=== PATIENT | male | born 1960 | race Caucasian/White ===

== ENCOUNTER 2019-05-12 11:49 | Outpatient (CLI) | payer OTHER, SELFPAY ==
--- NOTE | ~2019-05-12 | CT_ITS ---
EXAMINATION: CT abdomen pelvis wo con DATE: 05/12/2019 12:26 INDICATION: Localized abdominal pain for weeks. Evaluate for constipation or diverticulitis. TECHNIQUE: Computed tomography (CT) of the abdomen and pelvis was performed without intravenous contr ast. The dose-length product was 362.08 mGy-cm. Automated exposure control and iterative reconstructi on technique were employed. COMPARISON: None. FINDINGS: Lung bases are unremarkable. Heart size normal. No significant pleural or pericardial effus ion. There are calcified granulomas of the liver and spleen. Heart size is normal. Gallbladder is pre sent. There are fluid-filled distended small bowel loops throughout the abdomen to the terminal ileum . No transition point. Considerations include enteritis and ileus. Colonic diverticulosis without leona dence for diverticulitis. Appendix is mildly thickened measuring 7 mm, although there is no significa nt surrounding periappendiceal inflammation. No free air or free fluid. No abnormal pelvic masses or fluid collections. There is moderate lumbar spondylosis at L5-S1. No acute osseous abnormality. Mildl y enlarged mesenteric lymph nodes, likely reactive. IMPRESSION: 1. Fluid-filled distended small bowel loops, most likely ileus versus enteritis. No definite obstruct ion. 2: Mildly thickened appendix measuring 7 mm, although there are no secondary findings to support acut e appendicitis. Correlate clinically. 3: Mildly enlarged mesenteric lymph nodes, likely reactive. Reviewed, dictated and finalized at location A. IMPRESSION: 1. Fluid-filled distended small bowel loops, most likely ileus versus enteritis . No definite obstruction. 2: Mildly thickened appendix measuring 7 mm, although there are no secondary fi ndings to support acute appendicitis. Correlate clinically. 3: Mildly enlarged mesenteric lymph nodes, likely reactive.
[2019-05-12 12:47] LABS: Basophils Percent Auto 0.3 % (0.2-1.2); Eosinophils Absolute Auto 0.1 K/mm3 (0-0.3); Hematocrit 45.2 % (42.0-52.0); Hemoglobin 15.1 g/dL (14.0-18.0); Immature Granulocyte Absolute 0.02 K/mm3 (0.00-0.031); Immature Granulocyte Percent A 0.3 % (0-0.5); Lymphocytes Absolute Auto 1.19 K/mm3 (0.9-3.2); Mean Corpuscular HGB Conc 33.4 g/dl (32-36); Mean Corpuscular Hemoglobin 31.4 pg (26-34); Mean Platelet Volume 9.2 fl (7.4-10.4); Monocytes Absolute Auto 0.5 K/mm3 (0.1-0.6); Neutrophils Absolute Auto 5.2 K/mm3 (1.3-6.7); Neutrophils Percent Auto 73.4 % (45.5-73.1); Platelet Count Result 258 k/mm3 (150-375); Red Blood Count 4.81 M/mm3 (4.6-6.20); Red Cell Distribution Width 12.2 % (11.5-14.5)
[2019-05-12 12:48] LABS: Add Urine Microscopic? NO; Appearance Urine Clear (Clear); Bilirubin Urine Negative (Negative); Blood Urine Negative (Negative); Color Urine Yellow (Yellow); Glucose Urine UA Negative (Negative); Ketones Urine Negative (Negative); Leukocyte Esterase Ur Negative LEU/UL (NEGATIVE); Nitrate Urine Negative (Negative); Protein Urine Negative (Negative); Specific Grav Ur 1.016 (1.001-1.035); Urobilinogen Urine Negative mg/dL (<2.0)
[2019-05-12 12:56] LABS: Alanine Aminotransferase 22 U/L (4-50); Albumin Level 4.6 g/dL (3.5-5.1); Alkaline Phosphatase 74 U/L (38-126); Amylase 123 U/L (30-110); Aspartate Amino Transferase 31 U/L (17-59); Bilirubin,Total 0.6 mg/dL (0.2-1.3); Blood Urea Nitrogen 17 mg/dL (9-20); Carbon Dioxide 27 mmol/L (22-30); Chloride 100 mmol/L (98-107); Estimated Glomerular Filt Rate > 60; Glucose 99 mg/dL (75-110); Lipase 150 U/L (23-300); Potassium 4.5 mmol/L (3.4-5.0); Sodium 135 mmol/L (137-145)
== END 2019-05-12 11:50 | disposition home or self-care (01) ==
LOC: ANHIMG 11:59
PROVIDERS: PCP Family Medicine; Visit Provider Family Medicine
DX: R10.9 Unspecified abdominal pain (principal)
CPT/HCPCS: 36415; 74176; 80053; 81003; 82150; 83690; 85025

== ENCOUNTER 2025-01-19 06:58 | Day surgery (SDC) | payer OTHER, SELFPAY ==
[2025-01-08 08:10] VITALS: BMI 27.3
[2025-01-19 07:20] VITALS: BP 144/84; PULSE 71; RESP 16; TEMP 36.7; O2SAT 99
[2025-01-19] MEDS: LACTATED RINGERS 1,000 ML 150 ML IV CONT (07:43)
--- NOTE | 2025-01-19 08:06 | WPDANESEPPF ---
Anes - Initial Pre Proc Eval Procedure: Operation Date: 01/19/25 08:30 Proposed Procedures p Screening Colonoscopy - Bob Bishop MD Date/Time: 01/19/25 08:06 Surgeon: Bob Bishop MD Pre Op Diagnosis: Screening Patient Data Age: 64 Gender: M Height: 1.75 m Weight: 87.55 kg Last Vital Signs Temp 98.1 F 01/19/25 07:20 Pulse 71 01/19/25 07:20 Resp 16 01/19/25 07:20 BP 144/84 H 01/19/25 07:20 Pulse Ox 99 01/19/25 07:20 O2 Del Method Room Air 01/19/25 07:20 Allergies Allergy/AdvReac Type Severity Reaction Status Date / Time Penicillins Allergy Unknown Rash Verified 01/19/25 07:20 Home Medications ?Medication ?Instructions ?Recorded ?Confirmed ?Type rosuvastatin 10 mg tablet (Crestor) 10 mg PO DAILY #90 tabs 12/12/24 01/19/25 Rx lisinopril 20 mg tablet 20 mg PO DAILY 01/08/25 01/19/25 History Patient hx anesthesia problems: none Family hx anesthesia problems: none Results Review: All pre-operative results and documents have been reviewed as part of the pre-operative evaluation. [facility] Past Medical History Medical History HTN (hypertension) Wellness examination Surgical History Surgical History History of lumbar surgery Social History Social History Smoking status: Former smoker Tobacco type: cigarettes Second hand tobacco smoke exposure: No Alcohol intake: current Drinks per week: 12 Alcohol use details: beer Substance use: never Substance use type: does not use Lack of Transportation: No Lack of Food: Never True Current Housing: I Have Housing Concerned About Future Housing: No Difficulty Paying Gas/Electric Bills: No Difficulty Paying for Meds: No Currently Unemployed: No Education: Don't Know Living arrangements: alone Occupation/Education: occupation Gender identity (if verbalized by the patient): Male Sexual Orientation (if Verbalized by the Patient): Straight or Heterosexual Spiritual care concerns: No Anes - Eval Final PreProcedure Day of Procedure 12/01/25 08:06 Heart: regular rate and rhythm Lungs: clear to auscultation Airway: Mallampati scale class II Neurological: alert and oriented Last oral intake: >/= 8 hours ASA classification: II Anesthetic plan: proceed Anesthesia type and monitoring: general Results Review: All pre-operative results and documents have been reviewed as part of the pre-operative evaluation. Informed Consent: The patient's anesthetic plan and its attendant risks and benefits were discussed with the patient/family/POA. Questions were solicited and answers provided to the satisfaction of the patient/family/POA.
--- NOTE | 2025-01-19 08:28 | PM.IMHP2 ---
H&P: HPI History of Present Illness Date/Time: 01/19/25 08:28 Chief Complaint: Screening colonoscopy Narrative: This is the patient's first colonoscopy. There are no GI symptoms and there is no family history of colorectal cancer. Review of Systems Review of Systems: All systems reviewed & are unremarkable except as noted in HPI and below PMFSH Past Medical History Medical History HTN (hypertension) Wellness examination Surgical History Surgical History History of lumbar surgery Social History Social History Smoking status: Former smoker Tobacco type: cigarettes Second hand tobacco smoke exposure: No Alcohol intake: current Drinks per week: 12 Alcohol use details: beer Substance use: never Substance use type: does not use Lack of Transportation: No Lack of Food: Never True Current Housing: I Have Housing Concerned About Future Housing: No Difficulty Paying Gas/Electric Bills: No Difficulty Paying for Meds: No Currently Unemployed: No Education: Don't Know Living arrangements: alone Occupation/Education: occupation Gender identity (if verbalized by the patient): Male Sexual Orientation (if Verbalized by the Patient): Straight or Heterosexual Spiritual care concerns: No Meds Home Medications and Allergies Home Medications ?Medication ?Instructions ?Recorded ?Confirmed ?Type rosuvastatin 10 mg tablet (Crestor) 10 mg PO DAILY #90 tabs 12/12/24 01/19/25 Rx lisinopril 20 mg tablet 20 mg PO DAILY 01/08/25 01/19/25 History Allergies Allergy/AdvReac Type Severity Reaction Status Date / Time Penicillins Allergy Unknown Rash Verified 01/19/25 07:20 Vital Signs Vital Signs - 24 hr 01/19/25 07:20 Temperature 98.1 F Pulse Rate 71 Respiratory Rate 16 Blood Pressure 144/84 H Pulse Oximetry 99 Oxygen Delivery Room Air Exam Const: General: cooperative and healthy appearing Resp: Effort & Inspection: normal respiratory effort and able to speak in complete sentences Auscultation: clear to auscultation bilaterally Cardio: Rate: regular rate Rhythm: regular rhythm GI: Inspection: normal to inspection GI Palp: No No hepatosplenomegaly present Auscultation: normal bowel sounds Rectal Exam: deferred Skin: General skin exam: normal color Psych: Appearance: grossly normal Mental Status: mental status grossly normal Assessment and Plan Assessment and plan (1) Encounter for screening colonoscopy: Code(s): Z12.11 - Encounter for screening for malignant neoplasm of colon Status: Acute Assessment and Plan: The patient is deemed a good candidate for the procedure. Consent signed. Will proceed.
--- NOTE | 2025-01-19 08:42 | WPDANESPN ---
Anes - Prog Note Post-Op Date/Time: 01/19/25 08:42 Vital Signs: Last Vital Signs Temp 98.1 F 01/19/25 07:20 Pulse 71 01/19/25 07:20 Resp 16 01/19/25 07:20 BP 144/84 H 01/19/25 07:20 Pulse Ox 99 01/19/25 07:20 O2 Del Method Room Air 01/19/25 07:20 Pain Score (VAS): no Patient Feedback: Patient satisfied with anesthetic care.
[2025-01-19] MEDS: SIMETHICONE ORAL SUSPENSION 20 MG/0.3 ML 30 ML BOTTLE 0.6 ML IRRIGATION (08:43)
[2025-01-19 08:59] VITALS: BP 108/76; PULSE 86; RESP 14; O2SAT 98
[2025-01-19 09:09] VITALS: BP 125/81; PULSE 84; RESP 18; O2SAT 100
[2025-01-19 09:19] VITALS: BP 127/82; PULSE 73; RESP 18; O2SAT 99
== END 2025-01-19 09:30 | disposition home or self-care (01) ==
PROVIDERS: PCP Family Medicine; Referring Provider Student in an Organized Health Care Education/Training Program; Visit Provider Internal Medicine Gastroenterology
PROC: 0DJD8ZZ Inspection of Lower Intestinal Tract, Via Natural or Artificial Opening Endoscopic (ICD-10-PCS; CPT 45378; principal; 2025-01-19 08:30)
DX: Z12.11 Encounter for screening for malignant neoplasm of colon (principal); K57.30 Diverticulosis of large intestine without perforation or abscess without bleeding
CPT/HCPCS: 45378